=== PATIENT | male | born 1960 | race Caucasian/White ===

== ENCOUNTER 2017-12-19 21:00 | Emergency (ER) | payer BC, MEDICAID ==
[2017-12-19] MEDS ORDERED: Orphenadrine 100 MG Tab.ER PO STA (22:08)
--- NOTE | 2017-12-19 23:03 | EDM.PDOC ---
ED HPI GENERAL MEDICAL PROBLEM - General Chief Complaint: Lower Extremity Injury/Pain Stated Complaint: [facility] Time Seen by Provider: 12/19/17 21:19 Source of Information: Reports: Patient History Limitations: Reports: No Limitations - History of Present Illness INITIAL COMMENTS - FREE TEXT/NARRATIVE: This is a 57-year-old male. He had lower lumbar back surgery with screws and a cage he thinks, this week by Dr. Mcdaniels. He was released from the hospital today and when he got home he started having cramps or pain in his hamstring muscles the left was worse than the right. He called his doctor who told him to come to the ER to make sure he is not developing a blood clot in his leg. When he arrived he still has some soreness in his hamstring muscles but there are no longer spasming like they were at home. He was given some diazepam 5 mg tablets to help with muscle spasms. He is fairly comfortable laying on his right side presently. He is wanting a glass of water. He is here simply because his doctor asked him to come to be checked. Left Upper Leg Pain Score (Numeric/FACES): 6 - Related Data Allergies Allergy/AdvReac Type Severity Reaction Status Date / Time No Known Allergies Allergy Verified 12/19/17 21:08 Home Meds: Home Meds Acetaminophen/HYDROcodone [[place] 325-7.5 MG] 1 - 2 tab PO Q6H PRN #30 tab [Rx] Cyclobenzaprine [Flexeril] 10 mg PO BID #20 tab 05/02/14 [Rx] Hydrocodone/Acetaminophen [Hydrocodone-Acetaminophen 5-325] 1 tab PO Q4HR PRN # 5 tablet 05/02/14 [Rx] Ibuprofen 600 mg PO TID #30 tablet 05/02/14 [Rx] Orphenadrine [Norflex] 100 mg PO BID PRN #16 tab.er 12/20/17 [Rx] Past Medical History HEENT History: Reports: Impaired Vision Cardiovascular History: Reports: Hypertension Musculoskeletal History: Reports: Fracture Endocrine/Metabolic History: Reports: Hypothyroidism - Past Surgical History HEENT Surgical History: Reports: Tonsillectomy Other Musculoskeletal Surgeries/Procedures:: Lumbar back surgery Social & Family History - Family History Family Medical History: Noncontributory - Tobacco Use Smoking Status *Q: Former Smoker Used Tobacco, but Quit: Yes Month/Year Tobacco Last Used: 11/2017 - Recreational Drug Use Recreational Drug Use: No Review of Systems - Review of Systems Review Of Systems: See Below Constitutional: Denies: Chills, Fever Eyes: Reports: No Symptoms Ears: Reports: No Symptoms Nose: Reports: No Symptoms Mouth/Throat: Reports: No Symptoms Respiratory: Reports: No Symptoms Cardiovascular: Reports: No Symptoms GI/Abdominal: Reports: No Symptoms Genitourinary: Reports: No Symptoms Musculoskeletal: Reports: Other (As per history of present illness) Skin: Reports: No Symptoms Neurological: Reports: No Symptoms Psychiatric: Reports: No Symptoms ED EXAM, GENERAL - Physical Exam Exam: See Below Exam Limited By: No Limitations General Appearance: Alert, WD/WN, No Apparent Distress Eye Exam: Bilateral Eye: Normal Inspection Ears: Normal External Exam Nose: Normal Inspection Throat/Mouth: Normal Inspection, Normal Lips, Normal Voice, No Airway Compromise Head: Normocephalic Neck: Supple Respiratory/Chest: No Respiratory Distress Back Exam: Other (In the lumbar area there is a large incision with aliza present, it appears to be healing well with no evidence of infection) Extremities: Other (I examined his lower extremities there is no redness or erythema or swelling of his thighs or his posterior legs noted, palpation of the hamstring muscles reveal that they're soft and there is no evidence of spasms at this time, the left hamstring is sore on palpation much more than the right hamstring but it seems as though the spasms have eased up considerably, neurovascular is intact distally in both feet as described by the patient) Neurological: Alert, Oriented Psychiatric: Normal Affect, Normal Mood Skin Exam: Warm, Dry Course - Vital Signs Last Recorded V/S: Last Vital Signs Temp 98.0 F 12/19/17 21:03 Pulse 81 12/19/17 21:03 Resp 16 12/19/17 21:03 BP 142/97 H 12/19/17 21:03 Pulse Ox 100 12/19/17 21:03 - Orders/Labs/Meds Orders: Active Orders 24 hr Category Date Time Status VL Duplex Lwr Ext Veins Ltd Lt [US] Stat Exams 12/19/17 22:10 Taken Meds: Medications Discontinued Medications Generic Name Dose Route Start Last Admin Trade Name Freq PRN Reason Stop Dose Admin Orphenadrine Citrate 100 mg 12/19/17 22:08 12/19/17 22:18 Norflex PO 12/19/17 22:09 100 mg NOW STA Administration - Radiology Interpretation Free Text/Narrative:: The ultrasound of the left lower extremity showed no DVTs. - Re-Assessments/Exams Free Text/Narrative Re-Assessment/Exam: 12/20/17 00:04 I spoke to the patient regarding the ultrasound results. The Norflex did seem to ease up some of his muscle tightness and irritability any feeling much better now. I will provide a prescription for some Norflex and then he can use his diazepam in between times if he gets worsening muscle spasms. When over the fact that when he gets a spasm he needs to straighten and stretch that muscle to ease it up. He understands. Departure - Departure Time of Disposition: 00:04 Disposition: Home, Self-Care 01 Condition: Fair Clinical Impression: Muscle spasm of both lower legs, Status post lumbar surgery - Discharge Information Prescriptions: Orphenadrine [Norflex] 100 mg PO BID PRN #16 tab.er PRN Reason: Spasms Referrals: Teddy Delgadillo Jr, MD [Primary Care Provider] - Forms: ED Department Discharge Additional Instructions: Continue with the postop instructions as per your neurosurgeon, use the Norflex for muscle spasms twice a day and then you may use the diazepam in between times if the muscles act up, take your pain medications as needed, if you do get more leg spasms definitely try to stretch that muscle to ease the spasm up, return to the ER if needed and follow up with your neurosurgeon as scheduled - My Orders Last 24 Hours: My Active Orders 12/19/17 22:10 Duplex Lwr Ext Veins Ltd Lt [US] Stat - Assessment/Plan Last 24 Hours: My Active Orders 12/19/17 22:10 VL Duplex Lwr Ext Veins Ltd Lt [US] Stat
--- NOTE | 2017-12-22 07:29 | US ---
Left lower extremity deep venous ultrasound: Duplex and color flow imaging was obtained of the left common femoral, proximal cyst greater saphenous, superficial femoral, popliteal, posterior tibial and peroneal veins. Right common femoral vein was also evaluated. Normal phasic flow, augmentation and compression are seen. Impression: 1. No evidence of deep venous thrombosis within left lower extremity or within the right common femoral vein. Diagnostic code #1 Agree with preliminary report issued by [facility] ([facility] preliminary report dictated on 12/20/17, 12:36 AM Central Time)
== END 2017-12-20 00:15 | disposition home or self-care (01) ==
LOC: JD.ED 21:00
DX: M62.838 Other muscle spasm (principal); I10 Essential (primary) hypertension; E03.9 Hypothyroidism, unspecified; Z87.891 Personal history of nicotine dependence; Z79.899 Other long term (current) drug therapy
CPT/HCPCS: 93971; 99284; A9270

== ENCOUNTER 2020-06-09 08:06 | Emergency (ER) | payer MEDICAID ==
--- NOTE | 2020-06-09 08:32 | EDM.PDOC ---
ED HPI GENERAL MEDICAL PROBLEM - General Chief Complaint: Back Pain or Injury Stated Complaint: BACK PAIN-POST BACK SURGERY/URINATION PROBLEMS Time Seen by Provider: 06/09/20 08:15 Source of Information: Reports: Patient History Limitations: Reports: No Limitations - History of Present Illness INITIAL COMMENTS - FREE TEXT/NARRATIVE: 59-year-old male presents to the emergency department with complaints of low back pain and bilateral lower extremity numbness and tingling and a sensation of hot in his groin. Patient states that he had a lumbar fusion [address] Berto Gregory in [place]. States he has had no issues up until this morning when he attempted to get up out of bed. This occurred when he went from sitting to standing. Patient also reports that he has not been voiding per his normal. He reports that his stream is slower almost to the point of dribbling. Also states he has not had a bowel movement since surgery 3 days ago and he has been taking hydrocodone on a scheduled dose, he is also taking MiraLAX and senna. States he is passing gas. Bilateral Leg Pain Score (Numeric/FACES): 9 - Related Data Allergies Allergy/AdvReac Type Severity Reaction Status Date / Time No Known Allergies Allergy Verified 06/09/20 08:22 Home Meds: Home Meds Acetaminophen/HYDROcodone [[place] 325-7.5 MG] 1 - 2 tab PO Q6H PRN #30 tab 05/02/14 [Rx] Cyclobenzaprine [Flexeril] 10 mg PO BID #20 tab 05/02/14 [Rx] Hydrocodone/Acetaminophen [Hydrocodone-Acetaminophen 5-325] 1 tab PO Q4HR PRN #5 tablet 05/02/14 [Rx] Ibuprofen 600 mg PO TID #30 tablet 05/02/14 [Rx] Orphenadrine [Norflex] 100 mg PO BID PRN #16 tab.er 12/20/17 [Rx] Past Medical History HEENT History: Reports: Impaired Vision Cardiovascular History: Reports: Hypertension Musculoskeletal History: Reports: Fracture Endocrine/Metabolic History: Reports: Hypothyroidism - Past Surgical History HEENT Surgical History: Reports: Tonsillectomy Other Musculoskeletal Surgeries/Procedures:: Lumbar back surgery Social & Family History - Family History Family Medical History: No Pertinent Family History - Tobacco Use Tobacco Use Status *Q: Never Tobacco User ED ROS GENERAL - Review of Systems Review Of Systems: See Below Constitutional: Reports: No Symptoms HEENT: Reports: No Symptoms, Glasses Respiratory: Reports: No Symptoms Cardiovascular: Reports: No Symptoms Endocrine: Reports: No Symptoms GI/Abdominal: Reports: Constipation. Denies: Diarrhea, Decreased Appetite, Nausea, Vomiting : Reports: Urinary Retention Musculoskeletal: Reports: Back Pain (Due to lumbar fusion) Skin: Reports: No Symptoms Neurological: Reports: Numbness (Low back and bilateral lower extremities and groin), Tingling (Low back bilateral lower extremities and groin), Difficulty Walking (Due to severe low back pain and numbness and tingling to his bilateral lower extremities) Psychiatric: Reports: No Symptoms Hematologic/Lymphatic: Reports: No Symptoms Immunologic: Reports: No Symptoms ED EXAM,LOWER BACK PAIN/INJURY - Physical Exam Exam: See Below Exam Limited By: No Limitations General Appearance: Alert, WD/WN, Mild Distress Eye Exam: Bilateral Eye: PERRL Ears: Hearing Grossly Normal Nose: Normal Inspection Throat/Mouth: Normal Lips, Normal Voice, No Airway Compromise Head: Atraumatic, Normocephalic Neck: Normal Inspection, Supple, Non-Tender, Full Range of Motion Respiratory/Chest: No Respiratory Distress, Lungs Clear, Normal Breath Sounds, No Accessory Muscle Use, Chest Non-Tender Cardiovascular: Normal Peripheral Pulses, Regular Rate, Rhythm, No Edema, No Murmur GI/Abdominal: Normal Bowel Sounds, Non-Tender. No: Soft (Slightly firm) (Male) Exam: Deferred Rectal (Males) Exam: Deferred Back Exam: Normal Inspection, Full Range of Motion, Decreased Range of Motion (Due to pain from lumbar fusion), Other ([place] in place to lumbar spine) Extremities: Normal Inspection, Normal Range of Motion, No Pedal Edema, Normal Capillary Refill Neurological: Alert, Normal Mood/Affect, Normal Dorsiflexion, No Motor/Sensory Deficits, Oriented x 3, Other (Equal movement to bilateral lower extremities with CMS intact.) Psychiatric: Normal Affect, Normal Mood Skin Exam: Warm, Dry, Intact, Normal Color, No Rash, Wound/Incision ([place] noted to lumbar spine surgical area) Lymphatic: No Adenopathy Course - Vital Signs Text/Narrative:: 59-year-old male with complaints of low back pain and bilateral lower extremity numbness tingling and heat in his groin that occurred this morning when he went from sitting to standing. He is postop day 3 from a lumbar fusion. He states that he has not had any issues up until this morning when he laura from sitting to standing to get out of bed. States he has not been voiding per his norm does not feel like he is emptying his bladder completely. Has not had a bowel movement since surgery. He states he is passing gas. He has not had any nausea or vomiting. Patient states that as he is laying here on his right side that the numbness and tingling has almost completely subsided. His is able to move both of his legs and feel me touching down both extremities also is able to wiggle his digits. I have ordered a CBC and a C-reactive protein on this patient and we will scan his bladder. Last Recorded V/S: Last Vital Signs Temp 97.8 F 06/09/20 08:17 Pulse 87 06/09/20 08:17 Resp 20 06/09/20 08:17 BP 177/98 H 06/09/20 08:17 Pulse Ox 98 06/09/20 08:17 - Orders/Labs/Meds Orders: Active Orders 24 hr Category Date Time Status Bladder Scan [RC] ASDIRECTED Care 06/09/20 08:36 Active Enema [RC] ASDIRECTED Care 06/09/20 09:49 Active Insert Urinary Catheter [OM.PC] Q24H Care 06/09/20 09:00 Ordered Urinary Catheter Assessment [RC] ASDIRECTED Care 06/09/20 09:01 Active Labs: Laboratory Tests 06/09/20 06/09/20 Range/Units 08:50 08:50 WBC 12.14 H (4.23-9.07) K/mm3 RBC 3.10 L (4.63-6.08) M/mm3 Hgb 9.9 L (13.7-17.5) gm/dl Hct 31.4 L (40.1-51.0) % MCV 101.3 H (79.0-92.2) fl MCH 31.9 (25.7-32.2) pg MCHC 31.5 L (32.2-35.5) g/dl RDW Std Deviation 48.1 H (35.1-43.9) fL Plt Count 255 (163-337) K/mm3 MPV 9.3 L (9.4-12.3) fl Neut % (Auto) 64.1 (34.0-67.9) % Lymph % (Auto) 24.4 (21.8-53.1) % [place] % (Auto) 8.8 (5.3-12.2) % Eos % (Auto) 2.1 (0.8-7.0) Baso % (Auto) 0.3 (0.1-1.2) % Neut # (Auto) 7.78 H (1.78-5.38) K/mm3 Lymph # (Auto) 2.96 (1.32-3.57) K/mm3 [place] # (Auto) 1.07 H (0.30-0.82) K/mm3 Eos # (Auto) 0.25 (0.04-0.54) K/mm3 Baso # (Auto) 0.04 (0.01-0.08) K/mm3 C-Reactive Protein 1.7 H* (<1.0) mg/dL Meds: Medications Discontinued Medications Generic Name Dose Route Start Last Admin Trade Name Freq PRN Reason Stop Dose Admin Hydromorphone HCl 1 mg 06/09/20 10:03 06/09/20 10:13 Dilaudid IM 06/09/20 10:04 1 mg ONETIME ONE Administration Hydromorphone HCl 0.5 mg 06/09/20 12:21 06/09/20 12:32 Dilaudid IVPUSH 06/09/20 12:22 0.5 mg ONETIME ONE Administration - Radiology Interpretation Free Text/Narrative:: CT of the lumbar spine impression: 1. Previous surgery is noted. 2. Right-sided neural foraminal stenosis at L4-5 and left-sided neural foraminal stenosis at L5-S1 due to bony spurring. 3. Minimal left-sided pleural effusion. 4. Other degenerative changes as noted above. L3-4: Previous surgery is seen with posterior laminectomy. There are transpedicle screws above and below this level. No central canal stenosis is seen. Neuroforamina appear patent. L4-5: Intervertebral disc fixation is noted. Posterior laminectomy is noted. Transpedicle screws are seen above and below this level. L5-S1: Intervertebral disc fixation is seen. Transpedicle screws are seen above and below this level. Neuroforamina are patent. - Re-Assessments/Exams Free Text/Narrative Re-Assessment/Exam: 06/09/20 09:53 Patient was bladder scanned for 500+ mL of urine. Nursing staff attempted to get patient up to the bedside to void per urinal, but he states that is too painful to stand up and the numbness and tingling did return. Does not want to have a straight catheter placed, so he voided while laying in bed and was able to empty his bladder for 500 mL of urine. Upon reassessment however patient is found laying on his right side in the bed states that the numbness and tingling is still coming and going however now he feels there is pressure like he needs to have a bowel movement. He states that there is no possible way he will be able to sit and have a bowel movement due to the increased pain in his lower back. I will order a fleets enema and see if this gives him some relief. 06/09/20 09:55 CBC reveals WBC 12.14, hemoglobin 9.9, hematocrit 31.4 platelet count 255, and C-reactive protein 1.7. I suspect that this elevation in the white count and CRP are due to inflammatory response due to recent surgery as they are not significantly elevated. 06/09/20 11:35 Patient stating he will be unable to get up to the bedside commode due to pain once he has his enema. I ordered Dilaudid 1 mg IM. Nursing staff reports that patient was able to tolerate fleets enema and she was assisting him up to the bedside commode with much less pain noted. 06/09/20 12:00 Patient only had a scant amount of stool noted in bedside commode after enema. Still having intermittent numbness and tingling running down both legs. I attempted to contact Dr. Grant however he is out today so I spoke to the on- call neurosurgeon. He requests that I get a CT scan of the lumbar to make sure all hardware is in place, and if that looks good the patient can be sent home decreasing activity. 06/09/20 12:22 Patient is unable to tolerate laying flat for CT scan. Will order 0.5 mg Dilaudid IV. 06/09/20 13:[address] scan of the lumbar spine is back. It appears that the hardware is in place lumbar fusion that was done 3 days ago. Patient will be discharged to home. Per the recommendation of the neurosurgeon on-call, the patient is to decrease his activity at home, and decrease his narcotic use alternating Tylenol with hydrocodone. We will fax the CT report to Dr. Grant and have the patient call his office on Friday. Departure - Departure Time of Disposition: 13:55 Disposition: Home, Self-Care 01 Condition: Good Clinical Impression: S/P lumbar fusion, Status post lumbar surgery - Discharge Information Instructions: Pain Medicine Instructions, [id number] Referrals: Teddy Delgadillo Jr, MD [Primary Care Provider] - Forms: ED Department Discharge Additional Instructions: You were seen in the emergency department today with complaints of numbness and tingling down both legs, and inability to void. You were given pain medication and a fleets enema. We also completed a CT scan of your lumbar spine which shows that your hardware is in place. It is recommended per the neurosurgeon electronic bench technician that you go home decrease your activity, and rest. It is also advised that you decrease the amount of pain medication that you have been using. Please call Dr. Grant's office on Friday for follow-up. Please return to the emergency department should your condition worsen or change Sepsis Event Note (ED) - Evaluation Sepsis Screening Result: No Definite Risk - Focused Exam Vital Signs: Vital Signs Temp Pulse Resp BP Pulse Ox 06/09/20 08:17 97.8 F 87 20 177/98 H 98 - My Orders Last 24 Hours: My Active Orders 06/09/20 08:36 Bladder Scan [RC] ASDIRECTED 06/09/20 09:00 Insert Urinary Catheter [OM.PC] Q24H 06/09/20 09:01 Urinary Catheter Assessment [RC] ASDIRECTED 06/09/20 09:49 Enema [RC] ASDIRECTED - Assessment/Plan Last 24 Hours: My Active Orders 06/09/20 08:36 Bladder Scan [RC] ASDIRECTED 06/09/20 09:00 Insert Urinary Catheter [OM.PC] Q24H 06/09/20 09:01 Urinary Catheter Assessment [RC] ASDIRECTED 06/09/20 09:49 Enema [RC] ASDIRECTED
[2020-06-09] MEDS ORDERED: HYDROmorphone 1 MG/ML Syringe IM ONE (10:03)
[2020-06-09] MEDS ORDERED: HYDROmorphone 0.5 MG/0.5 ML Syringe IVPUSH ONE (12:21)
--- NOTE | 2020-06-09 13:43 | CT ---
CT lumbar spine Technique: Multiple axial sections were obtained from above T10-11 inferiorly through the L5-S1 disc. Reconstructed coronal and sagittal images were obtained. Findings: T10-11: Disc space narrowing is noted. Posterior disc is maintained. No central canal stenosis or neural foraminal stenosis is seen. T11-12: Posterior disc space narrowing is seen. Posterior disc is preserved. No central canal stenosis or neural foraminal stenosis is seen. T12-L1: Disc space narrowing is seen. Posterior disc is preserved. No central canal stenosis or neural foraminal stenosis is seen. L1-2: Minimal retrolisthesis is seen. Mild disc space narrowing is noted. Moderate degenerative apophyseal change is noted. No central canal stenosis or neural foraminal stenosis is appreciated. L2-3: Mild posterior disc space narrowing is seen. No central canal stenosis or neural foraminal stenosis is seen. There is fairly severe degenerative apophyseal change being noted. L3-4: Previous surgery is seen with posterior laminectomy. There are trans-pedicle screws above and below this level. No central canal stenosis is seen. Neural foramina appear patent. L4-5: Intervertebral disc fixation is seen. Posterior laminectomy is noted. Trans-pedicle screws are seen above and below this level. There are posterior osteophytes projecting into the inferior neural foramina and touching the right L4 nerve root. Left neural foramen is patent. L5-S1: Intervertebral disc fixation is seen. Trans-pedicle screws are seen above and below this level. Neural foramina are patent. There is bony bridging projecting into the left neural foramina causing left-sided neural foraminal stenosis. Right neural foramen is patent. No central canal stenosis is seen. Diffuse atherosclerotic calcification seen throughout the aorta. Skin aliza are present. No acute fracture or other abnormality is appreciated. Minimal left-sided pleural effusion is also noted. Impression: 1. Previous surgery as noted above. 2. Right-sided neural foraminal stenosis at L4-5 and left-sided neural foraminal stenosis at L5-S1 due to bony spurring. 3. Minimal left-sided pleural effusion. 4. Other degenerative change as noted above. Diagnostic code #3
== END 2020-06-09 14:17 | disposition home or self-care (01) ==
LOC: JD.ED 08:06
DX: M54.5 Low back pain (principal); I10 Essential (primary) hypertension; Z98.1 Arthrodesis status
CPT/HCPCS: 36415; 51701; 51798; 72131; 85025; 86140; 96372; 96374; 99284; J1170

== ENCOUNTER 2023-10-12 10:59 | Emergency (ER) | payer BC, MEDICAID ==
[2023-10-12] MEDS: Ketorolac 60 MG/2 ML SDV IM ONE (11:15)
[2023-10-12] MEDS: Cyclobenzaprine 10 MG Tab PO ONE (11:15)
[2023-10-12] MEDS: HYDROmorphone 1 MG/ML Syringe IM ONE (11:15)
[2023-10-12] MEDS: predniSONE 10 MG Tab PO ONE (11:51)
== END 2023-10-12 12:00 | disposition home or self-care (01) ==
LOC: JD.ED 10:59
DX: M54.41 Lumbago with sciatica, right side (principal); I10 Essential (primary) hypertension; E78.00 Pure hypercholesterolemia, unspecified; E03.9 Hypothyroidism, unspecified; J45.909 Unspecified asthma, uncomplicated; Z86.16 Personal history of COVID-19; F17.210 Nicotine dependence, cigarettes, uncomplicated; Z79.899 Other long term (current) drug therapy
CPT/HCPCS: 96372; 99283; 99284; A9270-GY; J1170; J1885; J7512

== ENCOUNTER 2024-08-07 21:09 | Emergency (ER) | payer MEDICARE, OTHER ==
[2024-08-07 22:15] LABS: BASOPHILS ABSOLUTE AUTO 0.1 K/mm3 (0.0-0.2); BASOPHILS PERCENT AUTO 0.3 % (0.0-1.0); EOSINOPHILS ABSOLUTE AUTO 0.2 K/mm3 (0.0-0.4); EOSINOPHILS PERCENT AUTO 1.1 % (0.0-6.0); HEMATOCRIT 37.6 % (42.0-52.0); HEMOGLOBIN 13.7 gm/dl (14.0-18.0); IMMATURE GRAN ABSOLUTE AUTO 0.08 K/mm3 (0.00-0.05); IMMATURE GRAN PERCENT AUTO 0.4 % (0.0-0.4); LYMPHOCYTES ABSOLUTE AUTO 3.7 K/mm3 (1.0-4.8); LYMPHOCYTES PERCENT AUTO 19.5 % (24.0-44.0); MEAN CORPUSCULAR HEMOGLOBIN 32.3 pg (28.0-32.0); MEAN CORPUSCULAR HGB CONC 36.4 g/dl (32.0-36.0); MEAN CORPUSCULAR VOLUME 88.7 fl (83.0-99.0); MEAN PLATELET VOLUME 8.7 fl (9.4-12.4); MONOCYTES ABSOLUTE AUTO 1.6 K/mm3 (0.0-0.8); MONOCYTES PERCENT AUTO 8.2 % (0.0-8.0); NEUTROPHILS ABSOLUTE AUTO 13.5 K/mm3 (1.8-7.7); NEUTROPHILS PERCENT AUTO 70.5 % (41.0-71.0); PLATELET COUNT,PLT 270 K/mm3 (150-400); RED BLOOD CELL COUNT 4.24 M/mm3 (4.52-5.90); WHITE BLOOD CELL COUNT,WBC 19.21 K/mm3 (3.9-11.3)
[2024-08-07] MEDS: Albuterol/Ipratropium 3.0-0.5 MG/3 ML Neb Soln NEB ONE (22:21)
[2024-08-07] MEDS: predniSONE 20 MG Tab PO ONE (22:29)
[2024-08-07 22:47] LABS: A/G RATIO 1.1 (1-2); ALBUMIN 3.8 g/dl (3.4-5.0); ANION GAP 11.5 (5-15); BILIRUBIN TOTAL 0.6 mg/dL (0.2-1.0); BUN/CREATININE RATIO 13.3 (14-18); CALCIUM 9.2 mg/dL (8.5-10.1); CREATININE 0.9 mg/dL (0.7-1.3); EST CRCL DRUG DOSING (CG) 76.33 mL/min; POTASSIUM,K 3.5 mEq/L (3.5-5.1); PROTEIN TOTAL,TP 7.2 g/dl (6.4-8.2)
[2024-08-07 23:08] LABS: SLIDE REVIEW ABNORMAL SMEAR
[2024-08-08] MEDS: Doxycycline Monohydrate 100 MG Cap PO ONE (00:10)
[2024-08-08] MEDS: Cephalexin 500 MG Cap PO ONE (00:10)
== END 2024-08-08 00:19 | disposition home or self-care (01) ==
LOC: JD.ED 21:09
DX: J98.8 Other specified respiratory disorders (principal); E87.1 Hypo-osmolality and hyponatremia; D72.829 Elevated white blood cell count, unspecified; I10 Essential (primary) hypertension; E78.00 Pure hypercholesterolemia, unspecified; Z79.890 Hormone replacement therapy; Z79.899 Other long term (current) drug therapy; Z79.51 Long term (current) use of inhaled steroids; Z86.16 Personal history of COVID-19; Z87.891 Personal history of nicotine dependence
CPT/HCPCS: 36415; 71045; 80053; 83880; 84484; 85025; 87428; 93005; 94640; 99285; A9270; J7512; 93010; 99284; J7620-GY